=== PATIENT | female | born 1975 | race Caucasian/White ===

== ENCOUNTER 2020-08-03 15:15 | Emergency (ER) | payer MEDICAID, SELFPAY ==
[~2020-08-03] VITALS: Ht 157.5 cm; Wt 65.8 kg
[2020-08-03 15:15] VITALS: BP_SYST 124
[2020-08-03 17:02] VITALS: BP_SYST 124
== END 2020-08-03 17:04 | disposition home or self-care (01) ==
LOC: SED 15:15
DX: R05 Cough (principal); F17.200 Nicotine dependence, unspecified, uncomplicated; Z71.6 Tobacco abuse counseling; Z20.822 Contact with and (suspected) exposure to COVID-19
CPT/HCPCS: 36415; 99283